=== PATIENT | female | born 1945 | race Caucasian/White ===

== ENCOUNTER 2016-10-15 14:54 | Inpatient (IN) | payer MEDICARE, OTHER ==
[~2016-10-15] VITALS: Ht 152.4 cm; Wt 56.7 kg
[~2016-10-15 14:54] MED LIST: ALTACE5 MG PO; BAYER CHEWABLE81 MG PO; BUMEX 1 MG TAB1 MG PO; COREG 3.1253.125 MG PO; GAVISCON E1 TAB.CHEW PO; K-TAB10 MEQ PO; VALIUM5 MG PO
[2016-10-15 15:42] LABS: BASOPHILS 0.2 % (0.0-2.0); EOSINOPHILS 0.2 % (0-7); HEMATOCRIT 39.1 % (36.0-48.0); HEMOGLOBIN 12.8 g/dL (12-16); IMMATURE GRANULOCYTES 0.6 % (0-5); LYMPHOCYTES 4.9 % (15-50); MCH 31.5 pg (26.0-34.0); MCHC 32.7 g/dL (31.0-37.0); MCV 96.3 fL (80.0-100.0); MEAN PLATELET VOLUME 10.1 fL (7.4-10.4); MONOCYTES 1.9 % (2-11); NEUTROPHILS 92.2 % (40-80); PLATELET COUNT 264 10x3/uL (130-400); RBC 4.06 10x6/uL (4.00-5.40); WBC 17.4 10x3/uL (4.8-10.8)
[2016-10-15 15:53] LABS: APTT 34.2 SECONDS (22.8-39.4)
[2016-10-15 15:56] LABS: ALBUMIN 4.1 g/dL (3.4-5.0); ALKALINE PHOSPHATASE 105 U/L (46-116); ALT (SGPT) 36 U/L (10-68); BILIRUBIN - TOTAL 0.99 mg/dL (0.2-1.3); CALC OSMOLALITY 281 mosm/kg (275-300); CALCIUM 8.9 mg/dL (8.5-10.1); CARBON DIOXIDE 28.8 mmol/L (21.0-32.0); CHLORIDE - SERUM 101 mmol/L (98-107); GLUCOSE 144 mg/dL (74-106); POTASSIUM - SERUM 3.7 mmol/L (3.5-5.1); PROTEIN - SERUM 7.9 g/dL (6.4-8.2); SODIUM 140 mmol/L (136-145); UREA NITROGEN 13 mg/dL (7-18); eGFR NON AFRICAN AMERICAN 58 mL/min (90-120)
[2016-10-15 16:03] LABS: TROPONIN-I < 0.017 ng/mL (0.000-0.060)
[2016-10-15 18:48] LABS: APPEARANCE TURBID (CLEAR); BILIRUBIN NEGATIVE (NEGATIVE); COLOR YELLOW (YELLOW); GLUCOSE NEGATIVE (NEGATIVE); KETONE SMALL mg/dL (NEGATIVE); LEUKOCYTE ESTERASE 2+ (NEGATIVE); NITRITE NEGATIVE (NEGATIVE); PH 5.5 (5.0-6.0); PROTEIN NEGATIVE (NEGATIVE); UROBILINOGEN NORMAL (NORMAL)
[2016-10-15 18:53] LABS: AMORPHOUS SEDIMENT >1+ /lpf (NONE SEEN); BACTERIA MANY /hpf (NONE SEEN); GRANULAR CAST 0-5 /lpf (NONE SEEN); HYALINE CAST OCC /lpf (NONE SEEN); MUCUS <1+ /lpf (NONE SEEN)
[2016-10-15 19:01] VITALS: BP 135/71
--- NOTE | 2016-10-15 19:15 | NUR ---
RECIEVED PT VIA STRETCHER FROM ER. REPORT GIVEN BY SAEED ENRIQUEZ. REPORT GIVEN TO CHRISTINA BAILEY ON QUARTZ MOUNTER.
[2016-10-15] MEDS ORDERED: MULTIPLE VITAMI1 TA1 PO (19:31)
[2016-10-15] MEDS ORDERED: SINGULAIR10 MG PO (19:32)
[2016-10-15] MEDS ORDERED: ZOLOFT25 MG PO (19:33)
[2016-10-16] VITALS (7 sets, daily range): BP systolic 124–165; BP diastolic 60–86; BMI 24.4
--- NOTE | 2016-10-16 08:22 | NUR ---
PT REC'D FROM CHRISTINA BAILEY. RESTING IN BED WITH EYES CLOSED. EASILY AROUSED. BP RECHECKED FROM PREVIOUS READING OF 162/92 AND WAS 139/81. AAOX4. RATING CURRENT PAIN IN BUTTOCK 5/10. +2 PEDAL PULSES AND BRISK CAP REFILL BILAT. BED LOW, CALL LIGHT IN REACH, ORAL CARE PROVIDED, DENIES NEEDS. CPOC.
--- NOTE | 2016-10-16 12:00 | NUR ---
16FR IRWIN CATHETER INSERTED USING STERILE TECHNIQUE. ALCOHOL SWABS USED DUE TO PT'S ALLERGY TO IODINE. TOLERATED WELL. IMMEDIATE RETURN OF APPROXIMETLY 400CC'S OF TONY URINE WITH SOME SEDIMENT. STAT LOCK APPLIED TO R LEG. PT LEGS LAYING FLAT. BED LOW, CALL LIGHT IN REACH, DENIES NEEDS. CPOC.
--- NOTE | 2016-10-16 12:30 | NUR ---
MORPHINE WEBBING TACKER INITIATED BY SAEED CAN.
--- NOTE | 2016-10-16 12:52 | NUR ---
PT AOX4 RESP EVEN AND NONLABORED PT C/O PAIN OF 10 ON NUMERICAL SCALE MORPHINE HAND STRAIGHTENER SET UP AND STARTED TO RIGHT AC THAT IS PATENT AND INTACT. PT HERE WITH FRACTURED PELVIS AND COCCYX FROM FALL. BED AT LOWEST SETTING CALL LIGHT WITHIN REACH WILL CONTINUE TO MONITOR
--- NOTE | 2016-10-16 17:19 | NUR ---
PT REPOSITIONED UP IN BED. FAMILY AND DINNER TRAY AT BEDSIDE. BED LOW, CALL LIGHT IN REACH, DENIES NEEDS. CPOC.
[2016-10-17 00:30] VITALS: BP 145/94
--- NOTE | 2016-10-17 01:58 | NUR ---
PT RESTING IN BED WITH NO DISTRESS. RESPIRATIONS ARE EVEN AND UNLABORED. SIDE RAILS ARE UP X 2. BED IS LOW. BED ALARM ON. CALL LIGHT IN REACH.
[2016-10-17 04:21] LABS: BASOPHILS 0.1 % (0.0-2.0); EOSINOPHILS 1.3 % (0-7); HEMATOCRIT 37.4 % (36.0-48.0); IMMATURE GRANULOCYTES 0.3 % (0-5); MCH 31.2 pg (26.0-34.0); MCHC 32.1 g/dL (31.0-37.0); MCV 97.1 fL (80.0-100.0); MEAN PLATELET VOLUME 10.8 fL (7.4-10.4); MONOCYTES 7.2 % (2-11); NEUTROPHILS 84.1 % (40-80); RBC 3.85 10x6/uL (4.00-5.40); RDW 13.4 % (11.5-14.5); WBC 14.9 10x3/uL (4.8-10.8)
[2016-10-17 04:29] LABS: PLATELET COUNT 190 10x3/uL (130-400)
[2016-10-17 04:35] LABS: ANION GAP 11.7 mmol/L (8-16); CALCIUM 8.6 mg/dL (8.5-10.1); CARBON DIOXIDE 29.2 mmol/L (21.0-32.0); CREATININE - SERUM 0.9 mg/dL (0.6-1.3); POTASSIUM - SERUM 3.9 mmol/L (3.5-5.1)
[2016-10-17 04:39] VITALS: BP 120/67
--- NOTE | 2016-10-17 07:32 | NUR ---
AWAKE AND ALERT AT THIS TIME. BED IN LOWEST POSITION WITH SRX2 AND BED ALARM ON. SCD'S OFF AT THIS TIME. MORPHINE FILER METAL PATTERNS SYRINGE EMPTIED, SO NEW SYRINGE PROGRAMMED INTO FILER METAL PATTERNS. PAIN LEVEL 5/10. OXYGEN ON 2L VIA NC. DENIES NEEDS AT PRESENT TIME. WILL CONTINUE WITH PLAN OF CARE.
[2016-10-17 08:58] VITALS: BP 132/82
--- NOTE | 2016-10-17 09:43 | NUR ---
Patient Name: JULISA VELASQUEZ Admission Status: ER Accout number: [id number] Admission Date: 10-15-2016 : 1945 Admission Diagnosis: Attending: JOSEFINA Current LOS: 2 Anticipated DC Date: 10-19-2016 Planned Disposition: Half-Way Facility Primary Insurance: MEDICARE A & B Discharge Planning Comments: CM MET WITH PATIENT REGARDING D/C NEEDS AND PLANS. PATIENT STATED SHE LIVES ALONE AND THERE ARE 5 STEPS TO ENTER HOME AND NO STAIRS INSIDE. AMBER FRAGOSO (NEIGHBOR/FRIEND) WILL DRIVE HER HOME WHEN READY. PATIENT IS GOING TO REHAB BEFORE SHE CAN GO HOME. PATIENT CHOSE THE [facility] NURSING /REHAB AND SIGNED THE [place] [facility]M. PATIENT STATED SHE IS INDEPENDENT WITH HER CARE AND USES A CANE. PATIENT STATED SHE WAS NOT USING HER CANE WHEN SHE FELL. PATIENT STATED SHE HAS NO OTHER DME AT HOME. PATIENTS PCP IS DR. ESTELITA CHÁVEZ AND SHE USES [facility]. CM WILL CONTINUE TO FOLLOW PATIENT WITH D/C NEEDS AND PLANS. PCP DR. ESTELITA CHÁVEZ [facility]- [phone] AMBER FRAGOSO [phone] JERRY BOWLING (SISTER) [phone] Commercial Management Accountant: Rosaflash Santana Is the patient Alert and Oriented? Yes 0 * How many steps to enter\exit or inside your home? 4 W/RAILS 0 * PCP DR. ESTELITA CHÁVEZ 0 * Pharmacy [facility] 0 * Preadmission Environment Home Alone 0 * ADLs Independent 0 * Equipment Cane 0 * List name and contact numbers for known caregivers / representatives who currently or will assist patient after discharge: AMBER RICHMOND (FRIEND/NEIGHBOR) [phone] JERRY BOWLING (SISTER) [phone] * Community resources currently utilized None 0 * Additional services required to return to the preadmission environment? Yes 0 * Can the patient safely return to the preadmission environment? Yes 0 * Has this patient been hospitalized within the prior 30 days at any hospital? No 0 Grand Total: 0
[2016-10-17 11:36] VITALS: BP 95/56
[2016-10-17 13:06] VITALS: Ht 152.4 cm; Wt 56.7 kg
--- NOTE | 2016-10-17 15:00 | NUR ---
FIRST STEP AIR OVERLAY APPLIED TO PT'S MATTRESS. IRWIN CATHETER LEAKING AROUND INSERTION SITE. EXPLAINED TO PT THAT THIS COULD BE DUE TO BLADDER SPASMS. 8ML WITHDRAWN FROM IRWIN CATHETER BALLOON, CATHETER INSERTED FARTHER INTO THE URETHRA AND BALLOON RE-INFLATED WITH 10ML OF STERILE WATER. PT TOLERATED WITHOUT COMPLAINTS. CALL LIGHT IN REACH AND BED ALARM ON. WILL CONTINUE WITH PLAN OF CARE.
[2016-10-17 15:51] VITALS: BP 118/68
[2016-10-17 19:00] VITALS: BP 111/62
--- NOTE | 2016-10-17 20:49 | NUR ---
PATIENT RESTING IN BED. ALERT AND ORIENTED. SO SIGNS OF DISTRESS NOTED. DENIES ANY NEEDS AT THIS TIME. SHIFT ASSESSMENT COMPLETED. BED LOW. CALL LIGHT IN REACH
[2016-10-18] VITALS: BP 148/68
[2016-10-18 04:00] VITALS: BP 153/56
--- NOTE | 2016-10-18 04:30 | NUR ---
DOUG MEDINA AT BEDSIDE. NO VISIBLE SIGNS OF DISTRESS. BED IN LOWEST POSITION AND CALL LIGHT WITHIN REACH.
[2016-10-18 05:40] LABS: BASOPHILS 0.1 % (0.0-2.0); EOSINOPHILS 1.1 % (0-7); HEMATOCRIT 32.8 % (36.0-48.0); HEMOGLOBIN 10.4 g/dL (12-16); IMMATURE GRANULOCYTES 0.2 % (0-5); LYMPHOCYTES 9.2 % (15-50); MCH 30.6 pg (26.0-34.0); MCHC 31.7 g/dL (31.0-37.0); MCV 96.5 fL (80.0-100.0); MEAN PLATELET VOLUME 10.7 fL (7.4-10.4); MONOCYTES 7.7 % (2-11); NEUTROPHILS 81.7 % (40-80); PLATELET COUNT 189 10x3/uL (130-400); RDW 13.2 % (11.5-14.5); WBC 10.1 10x3/uL (4.8-10.8)
[2016-10-18 06:23] LABS: CALC OSMOLALITY 285 mosm/kg (275-300); CALCIUM 8.2 mg/dL (8.5-10.1); CARBON DIOXIDE 27.8 mmol/L (21.0-32.0); CHLORIDE - SERUM 103 mmol/L (98-107); CREATININE - SERUM 0.8 mg/dL (0.6-1.3); GLUCOSE 134 mg/dL (74-106); POTASSIUM - SERUM 3.7 mmol/L (3.5-5.1); SODIUM 141 mmol/L (136-145); UREA NITROGEN 22 mg/dL (7-18); eGFR NON AFRICAN AMERICAN 75 mL/min (90-120)
--- NOTE | 2016-10-18 07:35 | NUR ---
SLEEPING AT THIS TIME WITH RESPIRATIONS EVEN AND NON LABORED. IRWIN PATENT AND DRAINING TO GRAVITY. SRX2 WITH BED IN LOWEST POSITION AND WHEELS LOCKED. CALL LIGHT IN REACH, WILL CONTINUE WITH PLAN OF CARE.
[2016-10-18 08:10] VITALS: BP 165/95
--- NOTE | 2016-10-18 08:28 | NUR ---
SCHEDULED MEDICATIONS ADMINISTERED AT THIS TIME, WELL PRN NORCO FOR PAIN. KIER DRIER D/C AND SYRINGE EMPTY. PT DENIES FURTHER NEEDS AT THIS TIME. CALL LIGHT IN REACH, WILL CONTINUE WITH PLAN OF CARE.
--- NOTE | 2016-10-18 11:00 | NUR ---
ASSISTED PT WITH EATING SOME OF BREAKFAST. PT HAD A BITE OF PATE, EGGS AND BISCUIT AND THEN STATED THAT SHE WAS DONE. WILL ORDER PT SOME ENSURE WITH MEALS. PT BRUSHED TEETH WITH MODERATE ASSISTANCE. PROVIDED PT WITH WARM RAG TO WASH FACE. DENIES FURTHER NEEDS AT THIS TIME. PAIN 4/10. CALL LIGHT IN REACH, SRX2 WITH BED IN LOWEST POSITION AND WHEELS LOCKED. BED ALARM ON. WILL CONTINUE WITH PLAN OF CARE.
[2016-10-18 11:41] VITALS: BP 151/75
--- NOTE | 2016-10-18 13:41 | NUR ---
PRN MORPHINE ADMINISTERED AT THIS PER ENTERPRISE APPLICATION ARCHITECT AND HIS INSTRUCTOR. DENIES NEEDS AT THIS TIME. CALL LIGHT IN REACH, WILL CONTINUE WITH PLAN OF CARE.
[2016-10-18 16:41] VITALS: BP 129/62
[2016-10-18 20:46] VITALS: BP 126/70
[2016-10-19 04:00] VITALS: BP 184/105
[2016-10-19] MEDS ORDERED: ELIQUIS2.5 MG PO (06:39)
[2016-10-19] MEDS ORDERED: HYDROCODONE-APA1 TAB PO (06:41)
--- NOTE | 2016-10-19 07:10 | NUR ---
REPORT RECEIVED FROM GALLEY HAND NURSE. CALL LIGHT IN REACH.
--- NOTE | 2016-10-19 07:45 | NUR ---
PATIENT IN LOW AGUILAR POSITION RESTING WITH EYES CLOSED. RESPIRATIONS EVEN AND UNLABORED. SIDE RAILS UP X2. BED IN LOW POSITION. CALL LIGHT IN REACH.
[2016-10-19] MEDS ORDERED: BACLOFEN10 MG PO (08:06)
[2016-10-19 08:41] VITALS: BP 180/79
--- NOTE | 2016-10-19 09:23 | NUR ---
ASSESSMENT COMPLETED. BACLOFEN PO WITH AM MEDS ADMINISTERED PER C/O SPASMS. O2 HAS BEEN WEANED TO ROOM AIR. IRWIN CATH DC'D WITH TIP INTACT. WILL REMOVE IV WHEN IT IS CLOSER TO TIME FOR HER TO LEAVE. BED ALARM ON. CALL LIGHT IN REACH. WILL CONTINUE WITH PLAN OF CARE.
--- NOTE | 2016-10-19 09:42 | NUR ---
O2 SAT 84% ON ROOM AIR. PLACED BACK ON TO 2L PER NC.
[2016-10-19] MEDS ORDERED: ROBAXIN500 MG PO (10:16)
--- NOTE | 2016-10-19 11:59 | NUR ---
STILL NO TIME ON WHEN [facility] WILL PICK PATIENT UP.
--- NOTE | 2016-10-19 12:35 | NUR ---
NORCO PO AND CEFEPIME IVPB. CALL LIGHT IN REACH.
--- NOTE | 2016-10-19 13:24 | NUR ---
CM REASSESSMENT NOTE: PATIENT IS DISCHARGING TODAY TO THE [facility] ([place], [place]) AND REHAB BY AMBULANCE TO A SKILLED BED.
--- NOTE | 2016-10-19 13:49 | NUR ---
OV DC'D WITH TIP INTACT PER STUDENT NURSE. REPORT CALLED TO CHRISTINA JARRETT, AT THE [facility]. [facility] CALLED.
[2016-10-19 13:58] VITALS: BP 184/84
--- NOTE | 2016-10-19 14:22 | NUR ---
DC INSTRUCTIONS EXPLAINED TO PATIENT. VERBALIZED UNDERSTANDING. DC PAPERWORK SIGNED AND WITNESSED.
--- NOTE | 2016-10-19 14:32 | NUR ---
DC'D TO AMBULANCE VIA STRETCHER.
== END 2016-10-19 14:32 | DRG 552 ==
LOC: D.ER 14:54 → D.MS 18:18
PROVIDERS: Emergency Medicine; ADMIT Family Medicine
PROC: 0T9B70Z Drainage of Bladder with Drainage Device, Via Natural or Artificial Opening (ICD-10-PCS; principal; 2016-10-16)
DX: S32.19XA Other fracture of sacrum, initial encounter for closed fracture (principal); N39.0 Urinary tract infection, site not specified; W01.0XXA Fall on same level from slipping, tripping and stumbling without subsequent striking against object, initial encounter; I10 Essential (primary) hypertension; I25.10 Atherosclerotic heart disease of native coronary artery without angina pectoris; I25.2 Old myocardial infarction; Z95.810 Presence of automatic (implantable) cardiac defibrillator; Z95.1 Presence of aortocoronary bypass graft; Z87.891 Personal history of nicotine dependence

== ENCOUNTER 2017-02-20 20:50 | Inpatient (IN) | payer MEDICARE, OTHER ==
[~2017-02-20] VITALS: Ht 152.4 cm; Wt 60.5 kg
--- NOTE | ~2017-02-20 | EC ---
PATIENT:JULISA VELASQUEZ DATE OF SERVICE: 02/21/17 SEX: F MEDICAL RECORD: [id number] DATE OF : [birth year] LOCATION:[facility] [address] AGE OF PATIENT: 71 ADMISSION DATE: 02/21/17 REFERRING PHYSICIAN: INTERPRETING PHYSICIAN: BARBARA FRITZ MD ECHOCARDIOGRAM REPORT ECHO CHARGES 4 ECHO COMPLETE CLINICAL DIAGNOSIS: CHEST PAIN HX OF CARDIOMYOPATHY / PACER ECHOCARDIOGRAPHIC MEASUREMENTS (adult normal given) AC root (d.<3.7cm) 2.9 cm LV Septum d (<1.2 cm> 1.2 cm Valve Excursion 1.5 cm LV Septum (systole) 1.4 cm Left Atria (s.<4.0cm> 3.3 cm LVPW d(<1.2cm) 1.1 cm RV (d.<2.3cm) 3.7 cm LVPW (sytole) 1.2 cm LV diastole(<5.6CM) 5.1 cm MV E-F(>70mm/sec) cm LV systole 3.4 cm LVOT Diameter 1.4 cm MV exc.(>10mm) 1.2 cm Est.ejection fraction (50-75%) % Pericardial Effusion N DOPPLER: LVIT cm/sec A 81.0 cm/sec E 87.0 cm/sec LA cm/sec RVSP 34 mmHg LVOT 98 cm/sec AOP1/2T m/s Asc. Ao 171 cm/sec RVOT 79 cm/sec RA cm/sec PA 108 cm/sec AV Gradient Peak 11.65mmHg AV Mean 6.52 mmHg AV Area 1.4 cm MV Gradient Peak 5.36 mmHg MV Mean 1.77 mmHg MV Area cm COMMENTS: Logistics Planning Engineer: 2 JUSTO JACKSON Supervisor Inspection: 4 Dr. Fritz TAPE# PACS DATE OF SERVICE: 02/23/2017 PROCEDURE: Echocardiogram. FINDINGS: 1. Left ventricle shows normal to near normal left ventricular systolic function without significant regional wall motion abnormalities, despite her history of cardiomyopathy and defibrillator placement. Inflow characteristics show diastolic dysfunction or possibly mildly elevated left ventricular ECHOCARDIOGRAM REPORT [id number] JULISA VELASQUEZ end-diastolic pressures. 2. The mitral valve, although poorly visualized, appears to be grossly normal with a mild eccentric posteriorly directed mitral regurgitation. 3. The left atrium is normal size and function. 4. The aortic valve again is not well visualized, but by Doppler interrogation appears to have normal function. 5. The right ventricle appears to be moderately dilated with mildly reduced systolic function. 6. The pericardium shows a trace pericardial effusion. 7. The tricuspid valve is grossly normal with mild tricuspid regurgitation, normal right ventricular systolic pressures. 8. The inferior vena cava was not well visualized as well as the interatrial septum. CONCLUSIONS: The patient has normal to near normal systolic function with no evidence of significant regional wall motion abnormalities. Despite the history of a defibrillator, I do not see a right-sided lead system, but it was a difficult study because of the patient's broken collar bone, we could not position it very well, but grossly the heart looks normal. There are no significant abnormalities within the valvular apparatus and there are no gross abnormalities in the structure component of the left ventricle. TRANSINT:[id number] Voice Confirmation ID: [id number] DOCUMENT ID: [id number] BARBARA FRITZ MD CC: [id number] DICTATION DATE: 02/23/17 1502 MEDICAL COST CONSULTANT: 02/23/17 1851 ADM IN [facility] [address] [place] [address]
[~2017-02-20 20:50] MED LIST changes: +BACLOFEN10 MG PO; +ELIQUIS2.5 MG PO; +HYDROCODONE-APA1 TAB PO; +MULTIPLE VITAMI1 TA1 PO; +ROBAXIN500 MG PO; +SINGULAIR10 MG PO; +ZOLOFT25 MG PO
[2017-02-20 21:58] LABS: BASOPHILS 0.2 % (0-2); EOSINOPHILS 1.3 % (0-7); HEMATOCRIT 38.6 % (36.0-48.0); HEMOGLOBIN 12.9 g/dL (12-16); IMMATURE GRANULOCYTES 0.3 % (0-5); LYMPHOCYTES 15.4 % (15-50); MCHC 33.4 g/dL (31.0-37.0); MCV 92.8 fL (80.0-100.0); MEAN PLATELET VOLUME 10.2 fL (7.4-10.4); MONOCYTES 7.8 % (2-11); RBC 4.16 10x6/uL (4.00-5.40); RDW 13.2 % (11.5-14.5); WBC 12.1 10x3/uL (4.8-10.8)
[2017-02-20 22:06] LABS: APTT 36.1 SECONDS (22.8-39.4); INR 0.97 (0.85-1.17); PLATELET COUNT 283 10x3/uL (130-400); PROTIME 12.7 SECONDS (11.6-15.0)
[2017-02-20 22:11] LABS: ALBUMIN 3.9 g/dL (3.4-5.0); ANION GAP 10.8 mmol/L (8-16); BILIRUBIN - TOTAL 0.33 mg/dL (0.2-1.3); CALCIUM 8.9 mg/dL (8.5-10.1); CREATININE - SERUM 0.9 mg/dL (0.6-1.3); POTASSIUM - SERUM 3.8 mmol/L (3.5-5.1); PROTEIN - SERUM 7.9 g/dL (6.4-8.2)
[2017-02-21 01:39] VITALS: BP 165/87; BMI 23.6
[2017-02-21 04:00] VITALS: BP 154/74
[2017-02-21 06:14] LABS: BASOPHILS 0.3 % (0-2); HEMATOCRIT 36.5 % (36.0-48.0); HEMOGLOBIN 12.2 g/dL (12-16); IMMATURE GRANULOCYTES 0.1 % (0-5); LYMPHOCYTES 29.4 % (15-50); MCHC 33.4 g/dL (31.0-37.0); MCV 92.9 fL (80.0-100.0); MEAN PLATELET VOLUME 10.6 fL (7.4-10.4); MONOCYTES 10.8 % (2-11); NEUTROPHILS 57.4 % (40-80); PLATELET COUNT 251 10x3/uL (130-400); RBC 3.93 10x6/uL (4.00-5.40); RDW 13.3 % (11.5-14.5)
[2017-02-21 06:25] LABS: WBC 7.5 10x3/uL (4.8-10.8)
[2017-02-21 06:30] LABS: CALC OSMOLALITY 283 mosm/kg (275-300); CALCIUM 8.7 mg/dL (8.5-10.1); CARBON DIOXIDE 28.1 mmol/L (21.0-32.0); CHLORIDE - SERUM 104 mmol/L (98-107); CREATININE - SERUM 0.7 mg/dL (0.6-1.3); GLUCOSE 108 mg/dL (74-106); POTASSIUM - SERUM 3.9 mmol/L (3.5-5.1); SODIUM 141 mmol/L (136-145); UREA NITROGEN 18 mg/dL (7-18); eGFR NON AFRICAN AMERICAN 88 mL/min (90-120)
[2017-02-21 08:54] VITALS: BP 163/75
--- NOTE | 2017-02-21 11:14 | NUR ---
PT RESTING QUIETLY. COREG GIVEN PER ORDERS. HELD OTHER MEDICATIONS DUE TO NPO STATUS. PAIN AT THIS TIME 09/16. WILL CONTINUE TO MONITOR.
[2017-02-21 11:55] VITALS: BP 158/74
--- NOTE | 2017-02-21 14:26 | NUR ---
PT REPORTED PAIN ON L ARM 5/10. GAVE MORPHINE PER ORDERS. WILL CONTINUE TO MONITOR. PT IS AWAKE AND ALERT.
--- NOTE | 2017-02-21 15:15 | NUR ---
CM NOTE: PATIENT IS DISCHARGING HOME TODAY/SIGNED WITH [facility]/FAMILY DRIVING HER.
[2017-02-21] MEDS ORDERED: HYDROCODON-ACE1 EAC7 PO (15:19)
[2017-02-21 15:48] VITALS: BP 116/77
--- NOTE | 2017-02-21 16:58 | NUR ---
UPON DISCUSSING DC INSTRUCTIONS WITH PATIENT AND FAMILTY IT WAS NOTED THAT PATIENT IS JUST POST PELVIC FRACTURE 8 WEEKS AGO WAS MOBILE WITH WALKER. PATIENT CURRENTLY LIVES ALONE AT [facility] AND DOES NOT HAVE FAMILY TO STAY WITH HER. CURRENTLY PATIENT REQUIRED MOD ASSIST FROM SITTING, STANDING AND GAIT UNSTEADY BALANCE OFF TO DUE HAVING LEFT CLAVICLE FRACTURE AND SLING IN PLACE. CALLED TATI RANDOLPHN. ORDERS TO HOLD DC AND C/S PT AND CASE MANAGEMENT FOR DC PLANNING.
--- NOTE | 2017-02-21 17:02 | NUR ---
PATIENT IS NOT DISCHARGING HOME TODAY. PATIENT CANNOT GET AROUND WELL ENOUGH LIVES ALONE.AND PT HAS BEEN CONSULTED.
--- NOTE | 2017-02-21 18:08 | NUR ---
PT SITTING IN CHAIR. COREG GIVEN. PT WEARING SLING ON LEFT ARM. PAIN 5/10. WILL GIVE PAIN MEDICATION.
--- NOTE | 2017-02-21 19:04 | NUR ---
TRANSFERRED TO BED FROM CHAIR. PT HAD SOME SOB. PULLED UP IN BED. SCD'S APPLIED. BED LOW POSITION. CALL LIGHT IN REACH. SIDE RAILS UP X 2.
--- NOTE | 2017-02-21 19:38 | NUR ---
PT IS LYING IN BED WITH EYES CLOSED, OPENS SIMUTANEOUSLY TO VOICE, POPT HAS SLING ON LEFT ARE STATED PAIN IS AT A 6. BED IN LOW POSITION CALL LIGHT IN REACH, PT IV WAS D/C ADVOED PT WILL CALL DOCTOR FOR PO PAIN MED
[2017-02-21 20:00] VITALS: BP 146/65
[2017-02-22] VITALS: BP 156/63
--- NOTE | 2017-02-22 02:00 | NUR ---
PATIENT RESTING IN BED WITH EYES CLOSED AND NO VISIBLE SIGNS OF DISTRESS. BED IN LOWEST POSITION AND CALL LIGHT WITHIN REACH.
[2017-02-22 04:00] VITALS: BP 147/60
--- NOTE | 2017-02-22 08:05 | NUR ---
CM MET WITH PATIENT REGARDING D/C NEEDS AND PLANS. PATIENT LIVES ALONE AND IF SHE WAS TO GO HOME AT DISCHARGE HER FAMILY WOULD DRIVE HER. PATIENT HAS AN ELEVATOR AT HER HOME-NO STEPS OR STAIRS. PATIENT HAD HIP SURGERY FEW MONTHS BACK AND HAS BEEN AT HOME-AND HAS NOW FALLEN. PATIENT WAS INDEPENDENT BEFORE THE FALL AND WAS DOING PRETTY GOOD SHE STATED. PATIENT HAS A WALKER, CANE, SHOWER CHAIR, WHEELCHAIR, AND BS COMMODE AT HOME. PATIENTS PCP IS DR. CHÁVEZ AND PHARMACY IS [facility]. PATIENT HAD [employer] RECENTLY AND WOULD LIKE THEM IF RETURNED HOME. PATIENT IS TOO WEAK WITH HER PRIOR HIP FRACTURE AND HER NEW FRACTURE TO RETURN HOME. PATIENT HAS A IP REHAB CONSULT TODAY. IF PATIENT IS NOT ACCEPTED IP REHAB SHE WOULD LIKE TO GO BACK TO THE [facility] NURSING AND REHAB. CM WILL CONTINUE TO FOLLOW PATIENT WITH D/C NEEDS AND PLANS. PCP [facility]- [phone] JERRY (SISTER) [phone]
--- NOTE | 2017-02-22 08:25 | NUR ---
AM MEDS GIVEN. PT RESTING IN BED. PAIN 2/10 ON LEFT ARM. SIDE RAILS UP X 2. DENIES OTHER NEEDS AT THIS TIME.
[2017-02-22 08:53] VITALS: BP 136/74
--- NOTE | 2017-02-22 10:12 | NUR ---
Rehab Prescreening Consult recieved and the chart has been reviewed. She does not meet criteria for IRF. Recommend home with HH. Spoke to the CM Rosa Richter re this. Annalee Patel RN Clinical Kiaison, Rehab
--- NOTE | 2017-02-22 12:26 | NUR ---
CM REASSESSMENT NOTE: PATIENT STATED SHE WOULD LIKE TO GO TO THE [facility] BECAUSE SHE HAS BEEN THERE BEFORE AND LIKED IT.
[2017-02-22 15:16] VITALS: Ht 152.4 cm; Wt 60.5 kg
[2017-02-22 16:35] VITALS: BP 125/49
--- NOTE | 2017-02-22 17:11 | NUR ---
PROVIDED CLEAN GOWN. ASSISTED PT IN GETTING DRESSED. SOB NOTED BUT SUBSIDED SHE RESTED ON THE BED. WILL CONTINUE TO MONITOR.
--- NOTE | 2017-02-22 19:21 | NUR ---
PT LYING IN BED WITH HOB AT 30, PT STRUGGLING TO CATCH BREATH, CHECKED O2 AND PT IS AT 89%. PROVIDED PT WITH NC AT 2L. ENCOURAGED PT TO DRINK PLENTY OF FLUIDS FOR UA. PT HAS NOT VOIDED SINCE ADMIT. ADVISED PT IF NO UA WITHIN 2 HOURS, WILL DO A BLADDAR SCAN AND I/O CATH. PT STATED UNDERSTOOD AND ASKED FORTALL CUP OF TEA. WILL CONTINUE TO MONITOR PT
[2017-02-22 20:00] VITALS: BP 143/64
[2017-02-22 22:25] LABS: APPEARANCE CLEAR (CLEAR); BILIRUBIN NEGATIVE (NEGATIVE); COLOR YELLOW (YELLOW); GLUCOSE NEGATIVE (NEGATIVE); KETONE NEGATIVE (NEGATIVE); LEUKOCYTE ESTERASE NEGATIVE (NEGATIVE); NITRITE NEGATIVE (NEGATIVE); PROTEIN NEGATIVE (NEGATIVE); SPECIFIC GRAVITY 1.025 (1.005-1.020); UROBILINOGEN NORMAL (NORMAL)
[2017-02-23] VITALS: BP 136/82
--- NOTE | 2017-02-23 02:00 | NUR ---
PT IN BED WITH NO DISTRESS. RESPIRATIONS EVEN AND UNLABORED. SIDE RAILS X 2. BED LOW. CALL LIGHT IN REACH.
[2017-02-23 04:00] VITALS: BP 142/55
[2017-02-23 05:41] LABS: BASOPHILS 0.3 % (0-2); EOSINOPHILS 2.1 % (0-7); HEMATOCRIT 34.8 % (36.0-48.0); HEMOGLOBIN 11.2 g/dL (12-16); IMMATURE GRANULOCYTES 0.3 % (0-5); LYMPHOCYTES 25.9 % (15-50); MCH 30.4 pg (26.0-34.0); MCHC 32.2 g/dL (31.0-37.0); MCV 94.3 fL (80.0-100.0); MEAN PLATELET VOLUME 10.2 fL (7.4-10.4); MONOCYTES 11.3 % (2-11); NEUTROPHILS 60.1 % (40-80); PLATELET COUNT 231 10x3/uL (130-400); RBC 3.69 10x6/uL (4.00-5.40); RDW 13.5 % (11.5-14.5); WBC 7.6 10x3/uL (4.8-10.8)
[2017-02-23 06:08] LABS: ALBUMIN 3.2 g/dL (3.4-5.0); ALKALINE PHOSPHATASE 94 U/L (46-116); ALT (SGPT) 30 U/L (10-68); CALC OSMOLALITY 285 mosm/kg (275-300); CALCIUM 8.4 mg/dL (8.5-10.1); CARBON DIOXIDE 30.7 mmol/L (21.0-32.0); CHLORIDE - SERUM 105 mmol/L (98-107); CREATININE - SERUM 0.8 mg/dL (0.6-1.3); GLUCOSE 111 mg/dL (74-106); POTASSIUM - SERUM 3.8 mmol/L (3.5-5.1); PROTEIN - SERUM 6.6 g/dL (6.4-8.2); SODIUM 142 mmol/L (136-145); UREA NITROGEN 18 mg/dL (7-18); eGFR NON AFRICAN AMERICAN 75 mL/min (90-120)
--- NOTE | 2017-02-23 07:00 | NUR ---
REPORT RECIEVED ASSUMED CARE. PATIENT IN BED WITH IV INTACT. NO COMPLAINTS AT THIS TIME. CALL LIGHT WITHIN REACH.
--- NOTE | 2017-02-23 07:50 | NUR ---
PATIENT COMPLAINS OF CHEST PAIN AT THIS TIME. STATED IN BACK AND RIGHT SHOULDER TO CHEST. NOTIFIED ELEN CHAVEZ APN. NEW ORDERS RECIEVED AND CARRIED OUT. PAGED RT FOR STAT EKG.
--- NOTE | 2017-02-23 08:00 | NUR ---
NOTIFIED TATI ABOUT PATIENT CHEST PAIN. NEW ORDERS RECIEVED AND CARRIED OUT. CALL LIGHT WITHIN REACH. VS STABLE.
[2017-02-23 08:30] LABS: CKMB 1.2 U/L (0.0-3.6); CREATINE KINASE 64 UL (21-215)
[2017-02-23 08:31] LABS: TROPONIN-I < 0.017 ng/mL (0.000-0.060)
[2017-02-23 08:55] VITALS: BP 149/63
--- NOTE | 2017-02-23 09:51 | NUR ---
CM REASSESSMENT NOTE: REFERRAL HAS BEEN SENT TO THE [facility] /[place] [facility] SIGNED
[2017-02-23 12:23] VITALS: BP 144/67
[2017-02-23 14:55] LABS: CKMB 1.1 U/L (0.0-3.6); CREATINE KINASE 83 UL (21-215)
[2017-02-23 14:57] LABS: TROPONIN-I < 0.017 ng/mL (0.000-0.060)
[2017-02-23 16:49] VITALS: BP 123/55
--- NOTE | 2017-02-23 18:45 | NUR ---
PATIENT IN BED SITTING UP EATING. NO OCMPLAINTS. IV INTACT. TELE ON. CALL LIGHT WITHIN REACH. BREATHING SOUNDS BETTER THAN THIS AM.
--- NOTE | 2017-02-23 19:26 | NUR ---
PT IS SITTING IN BED REQUESTED ASSISTANCE TO RESTROOM. PT IS VERY SHORT OF BREATH, O2 CANNULA AT 2L PT REFUSED, C/O BACK PAIN WHERE SHOULDER IS. PT HAS NORCO 5 Q6PRN. BED IN LOW POSITION, CALL LIGHT WITHIN REACH
[2017-02-23 20:00] VITALS: BP 115/45
[2017-02-23 20:57] LABS: CKMB 1.4 U/L (0.0-3.6); CREATINE KINASE 68 UL (21-215); TROPONIN-I < 0.017 ng/mL (0.000-0.060)
[2017-02-24] VITALS: BP 124/53
--- NOTE | 2017-02-24 01:10 | NUR ---
SLEEPING WITHOUT DISTRESS.CALL LIGHT IN REACH
[2017-02-24 04:00] VITALS: BP 122/51
[2017-02-24 06:11] LABS: BASOPHILS 0.3 % (0-2); HEMATOCRIT 32.9 % (36.0-48.0); HEMOGLOBIN 10.4 g/dL (12-16); IMMATURE GRANULOCYTES 0.2 % (0-5); LYMPHOCYTES 34.9 % (15-50); MCHC 31.6 g/dL (31.0-37.0); MCV 94.8 fL (80.0-100.0); MEAN PLATELET VOLUME 10.6 fL (7.4-10.4); MONOCYTES 11.5 % (2-11); NEUTROPHILS 50.1 % (40-80); PLATELET COUNT 215 10x3/uL (130-400); RBC 3.47 10x6/uL (4.00-5.40); RDW 13.3 % (11.5-14.5); WBC 6.2 10x3/uL (4.8-10.8)
[2017-02-24 06:28] LABS: ALBUMIN 2.9 g/dL (3.4-5.0); ALKALINE PHOSPHATASE 93 U/L (46-116); ALT (SGPT) 29 U/L (10-68); BILIRUBIN - TOTAL 0.62 mg/dL (0.2-1.3); CALC OSMOLALITY 278 mosm/kg (275-300); CALCIUM 8.2 mg/dL (8.5-10.1); CARBON DIOXIDE 30.3 mmol/L (21.0-32.0); CHLORIDE - SERUM 106 mmol/L (98-107); CREATININE - SERUM 0.7 mg/dL (0.6-1.3); GLUCOSE 97 mg/dL (74-106); POTASSIUM - SERUM 3.6 mmol/L (3.5-5.1); PROTEIN - SERUM 6.4 g/dL (6.4-8.2); SODIUM 140 mmol/L (136-145); eGFR NON AFRICAN AMERICAN 88 mL/min (90-120)
[2017-02-24 06:34] LABS: UREA NITROGEN 12 mg/dL (7-18)
[2017-02-24 08:50] VITALS: BP 152/78
--- NOTE | 2017-02-24 12:32 | NUR ---
CM REASSESSMENT NOTE: PATIENT IS DISCHARGING TODAY TO THE [facility] AND REHAB BY [facility] TO A SKILLED BED.
[2017-02-24 12:33] VITALS: BP 127/45
--- NOTE | 2017-02-24 15:31 | NUR ---
REPORT CALLED TO KATHERINE AT THE [facility].
--- NOTE | 2017-02-24 16:00 | NUR ---
DISCHARGE INSTRUCTIONS GIVEN TO PATIENT, VERBALIZED UNDERSTANDING. NO QUESTIONS AT THIS TIME. PATIENT ASSISTED TO BY 2 PEOPLE. ESCORTED TO [facility] BY [facility] SERVICES MANAGER WITH PERSONAL BELONGINGS.
== END 2017-02-24 16:00 | DRG 563 ==
LOC: D.ER 20:50 → D.MS 23:23 → OBSVTIME 23:24 → D.MS 02-21 17:10
PROVIDERS: Family Medicine; Physician Assistant Medical; ADMIT Emergency Medicine
DX: S42.032A Displaced fracture of lateral end of left clavicle, initial encounter for closed fracture (principal); D62 Acute posthemorrhagic anemia; S42.215D Unspecified nondisplaced fracture of surgical neck of left humerus, subsequent encounter for fracture with routine healing; W01.0XXA Fall on same level from slipping, tripping and stumbling without subsequent striking against object, initial encounter; I25.10 Atherosclerotic heart disease of native coronary artery without angina pectoris; Z95.810 Presence of automatic (implantable) cardiac defibrillator; Z95.1 Presence of aortocoronary bypass graft; F32.9 Major depressive disorder, single episode, unspecified; R07.9 Chest pain, unspecified